=== PATIENT | male | born 1975 | race Caucasian/White ===

== ENCOUNTER 2017-01-05 07:40 | Day surgery (SDC) | payer OTHER ==
[2017-01-03 13:57] LABS: BASOPHILS 0.2 %; BASOPHILS ABSOLUTE 0.02 10/3/uL (0.0-0.16); EOSINOPHILS 2.9 %; EOSINOPHILS ABSOLUTE 0.31 10/3/uL (0.0-0.53); HEMATOCRIT 45.2 % (40.0-51.0); HEMOGLOBIN 15.7 g/dL (13.6-17.8); IMMATURE GRANULOCYTES 0.3 %; IMMATURE GRANULOCYTES ABSOLUTE 0.03 10/3/uL (0.0-0.11); LYMPHOCYTES 30.8 %; LYMPHOCYTES ABSOLUTE 3.24 10/3/uL (0.67-4.30); MANUAL DIFF NO %; MEAN CORPUS HGB CONC 34.7 g/dL (32.0-36.0); MEAN CORPUSCULAR HEMOGLOB 28.2 pg (26.0-34.0); MEAN CORPUSCULAR VOLUME 81.1 fL (80-100); MEAN PLATELET VOLUME 9.3 fL (9.2-13.0); MONOCYTES 12.4 %; NEUTROPHILS 53.4 %; NEUTROPHILS ABSOLUTE 5.62 10/3/uL (2.02-8.40); PLATELET COUNT 245 10/3/uL (150-400); RBC DISTRIBUTION WIDTH 13.4 % (12.0-16.0); RED CELL COUNT 5.57 10/6/uL (4.7-6.1); WHITE BLOOD CELLS 10.5 10/3/uL (4.5-10.5)
[2017-01-03 14:10] LABS: CHLORIDE, SERUM 102 MMOL/L (96-112); CREATININE 1.51 MG/DL (0.70-1.30); GFR AFRICAN AMERICAN 65 ML/MIN (>=60); GFR NON AFRICAN AMERICAN 56 ML/MIN (>=60); POTASSIUM, SERUM 3.4 MMOL/L (3.5-5.3); SODIUM, SERUM 141 MMOL/L (135-148)
[2017-01-03 14:11] LABS: BUN (BLOOD UREA NITROGEN) 17 MG/DL (6-23); CALCIUM, SERUM 9.3 MG/DL (8.5-10.4); CO2 (CARBON DIOXIDE) 28 MMOL/L (24-34); GLUCOSE, SERUM 121 MG/DL (60-99)
[2017-01-03 14:12] LABS: ASCORBIC ACID (UR NOT ORDER) NEG (NEG); BILIRUBIN, URINE NEGATIVE (NEG); KETONE, URINE NEGATIVE (NEG); LEUKOCYTE ESTERASE(NOT OR NEG (NEG); WBC (NOT ORDERED) (RFLEX) 0 (0-5)
--- NOTE | ~2017-01-05 | OP ---
Record Of Operation [facility] [address] [place] [address] NAME: SHRADDHA RAO JR : 71 STATUS : REG [facility] PAT#: [id number] AGE: 41 ADM/REG DATE : 01/05/17 MR#: [id number] REPORT SERV DATE: 01/05/17 DICTATED BY: OPAL DAILY DATE: 01/05/17 REPORT STATUS : Draft TRANSCRIBED BY: MODL DATE: 01/05/17 DATE OF PROCEDURE: 01/05/2017 PREOPERATIVE DIAGNOSIS: Right mid ureteral stone. POSTOPERATIVE DIAGNOSIS: Right mid ureteral stone. PROCEDURE PERFORMED: ESWL. ANESTHESIA: MAC. HISTORY: This is a 41-year-old white male, recently presenting to the office with right flank pain. He has been found to have about an 8 mm right mid ureteral stone. We are planning in situ ESWL. Risks of infection, bleeding, failure, need for further surgery have been discussed. PROCEDURE IN DETAIL: The patient was taken to the lithotripsy suite and was placed in a supine position on the lithotripsy table. He underwent MAC. His stone was easily imaged fluoroscopically and he received 2500 shocks up to a power level of 4. It appeared that the stone fragmented nicely. He tolerated the procedure well and at the conclusion of the procedure, he was transferred to recovery in stable condition. JULISSA/PAMELLA Opal Daily M.D. / [id number] CC: Opal Daily M.D.
[~2017-01-05 07:40] MED LIST: ABILIFY10 PO; BUSPAR10 PO; GLUCPH PO; HYDROCHLOROT12.5 MG PO; LEVOTHYROXIN50 MCG PO; METHOC500B PO; NEUR300 PO; PERCOCET 7.5/321 TAB PO; POTASSIUM GLUCO99 MG PO; PRAVACHOL80 MG PO; PRIN10 PO; TESTOST CYP100 MG/ML IM; WELLXL150 PO
[2017-02-28] MEDS ORDERED: ZANTAC150 MG PO (13:51)
[2017-04-09] MEDS ORDERED: WELLSR150 PO (20:00)
[2017-04-09] MEDS ORDERED: BUSPAR10 PO (20:00)
[2017-04-09] MEDS ORDERED: MINIPRESS 2 MG C2 MG PO (20:01)
[2017-04-09] MEDS ORDERED: NEUR300 PO (20:02)
[2017-04-09] MEDS ORDERED: ABILIFY5 PO (20:03)
[2017-04-09] MEDS ORDERED: METHOC500B PO (20:03)
[2017-04-09] MEDS ORDERED: HYDROCHLOROT25 MG PO (20:04)
[2017-04-09] MEDS ORDERED: ZANTAC 150 PO (20:05)
[2017-04-09] MEDS ORDERED: LEVOTHYROXIN50 MCG PO (20:05)
[2017-04-09] MEDS ORDERED: PRAVACHOL40 MG PO (20:05)
[2017-04-09] MEDS ORDERED: TESTOST CYP100 MG/ML IM (20:06)
[2017-04-09] MEDS ORDERED: POTASSIUM GLUCO99 MG PO (20:08)
[2017-04-10] MEDS ORDERED: GLUCPH PO (13:46)
== END 2017-01-05 23:59 | disposition home or self-care (01) ==
LOC: SDC 07:40
PROVIDERS: Urology
PROC: 0TF6XZZ Fragmentation in Right Ureter, External Approach (ICD-10-PCS; principal; 2017-01-05 10:30)
DX: N20.1 Calculus of ureter (principal); I10 Essential (primary) hypertension; E78.5 Hyperlipidemia, unspecified; F41.9 Anxiety disorder, unspecified; E11.9 Type 2 diabetes mellitus without complications; F43.10 Post-traumatic stress disorder, unspecified; E03.9 Hypothyroidism, unspecified; Z88.5 Allergy status to narcotic agent; Z88.1 Allergy status to other antibiotic agents; Z90.49 Acquired absence of other specified parts of digestive tract; Z98.890 Other specified postprocedural states
CPT/HCPCS: 50590; 74000; 80048; 81001; 82962; 85025; 93005; A9270-GY; J2250; J3010